=== PATIENT | male | born 1985 ===

== ENCOUNTER 2023-03-14 11:25 | Emergency (ER) | payer SELFPAY ==
[~2023-03-14] VITALS: Ht 175.3 cm; Wt 72.7 kg
[2023-03-14 12:02] LABS: BASOPHILS % (AUTO) 0.4 % (0.0-2.0); EOSINOPHILS % (AUTO) 0 % (1.0-6.0); HEMATOCRIT 45.1 % (41-53); HEMOGLOBIN 15.9 g/dL (13.5-17.5); LYMPHOCYTES # (AUTO) 1.1 K/uL (1.0-4.8); LYMPHOCYTES % (AUTO) 12.7 % (22.0-44.0); MEAN CORPUSCULAR HEMOGLOBIN 30.6 pg (26.0-34.0); MEAN CORPUSCULAR HGB CONC 35.2 G/dL (31.0-37.0); MEAN CORPUSCULAR VOLUME 87 fL (80-100); MONOCYTES # (AUTO) 0.5 K/uL (0.1-1.0); MONOCYTES % (AUTO) 5.6 % (2.0-9.0); NEUTROPHILS # (AUTO) 6.8 K/uL (1.8-7.7); NEUTROPHILS % (AUTO) 81.3 % (40.0-70.0); PLATELET COUNT (AUTO) 245 K/uL (150-450); RED CELL DISTRIBUTION WIDTH 12.8 % (11.5-14.5); WHITE BLOOD COUNT (AUTO) 8.3 K/uL (4.5-11.0)
[2023-03-14 12:10] LABS: CALCIUM, TOTAL 9.2 mg/dL (8.8-10.5); CREATININE 1.35 mg/dL (0.60-1.30); POTASSIUM 4.3 mmol/L (3.5-5.1)
[2023-03-14] MEDS ORDERED: MORPHINE SULFATE 4 MG/ML SYRINGE IVP ONE (12:15)
[2023-03-14] MEDS ORDERED: ONDANSETRON HCL 4 MG/2 ML VIAL IVP ONE (12:15)
[2023-03-14 12:16] LABS: ALBUMIN 4.7 g/dL (3.4-5.0); BILIRUBIN,TOTAL 0.5 mg/dL (0.1-1.0); TOTAL PROTEIN, SERUM 7.9 g/dL (6.4-8.2)
[2023-03-14] MEDS ORDERED: IOHEXOL 350 MG/ML 100 ML VIAL ONE (12:30)
[2023-03-14] MEDS ORDERED: SODIUM CHLORIDE 0.9% 100 ML ONE (12:30)
[2023-03-14] MEDS ORDERED: KETOROLAC TROMETHAMINE 30 MG/ML VIAL IVP ONE (12:45)
[2023-03-14 13:09] VITALS: BP 140/91; PULSE 90; RESP 16
[2023-03-14 13:25] LABS: APPEARANCE,URINE CLEAR (CLEAR); BILIRUBIN,URINE NEGATIVE (NEGATIVE); COLOR,URINE YELLOW (YELLOW); GLUCOSE, URINE (UA) NEGATIVE (NEGATIVE); KETONES,URINE 40-60 mg/dL (NEGATIVE); LEUKOCYTE ESTERASE ,URINE NEGATIVE (NEGATIVE); NITRATE,URINE NEGATIVE (NEGATIVE); OCCULT BLOOD,URINE SMALL (NEGATIVE); PH,URINE 5.5 (5.0-8.0); PROTEIN,URINE 30-70 mg/dL (NEGATIVE); SPECIFIC GRAVITIY, URINE 1.029 (1.003-1.030); UROBILINOGEN,URINE <=1.0 mg/dL (<=1.0)
[2023-03-14 13:32] VITALS: TEMP 97.5
[2023-03-14 13:38] LABS: BACTERIA,URINE Few /HPF (None Seen); SQUAMOUS EPITHELIAL CELL,UR Moderate /LPF (None Seen); WBC,URINE 0-2 /HPF (0-5)
[2023-03-14 13:39] LABS: FINE GRANULAR CASTS,URINE 0-2 /LPF (None Seen)
[2023-03-14] MEDS ORDERED: SODIUM CHLORIDE 0.9% 1,000 ML IV ONE (15:00)
[2023-03-14] MEDS ORDERED: ONDA-104 PO (15:05)
[2023-03-14] MEDS ORDERED: IBUP-1492 PO (15:05)
[2023-03-14] MEDS ORDERED: ACET-3385 PO (15:05)
== END 2023-03-14 16:13 | disposition home or self-care (01) ==
LOC: EMS 11:26
DX: N20.0 Calculus of kidney (principal)
CPT/HCPCS: 99285; 74177; 96374; 96375; 96361; 80053; 81001; 83690; 85025; 36415; J1885; J2270; J2405; Q9967; J7030; J7050